=== PATIENT | male | born 1955 | race Caucasian/White ===

== ENCOUNTER → 2016-04-27 | Outpatient (CLI) | payer OTHER ==
[~2016-04-27] MED LIST: BLOOD GLUCOSE T1 TES; FLUT1SPR9; FLUT50SP EACH NARE; GLIP5 OR; GLIP5TAB8 PO; GLUCTES27 XX; IBUP-232 PO; IBUP600T26 PO; LISI-519 PO; NAPR250T PO; ROBA750T3 PO
[2016-04-27 08:44] LABS: AUTOMATED NEUTROPHIL # 5.1 TH/MM3 (1.8-7.7); BASOPHIL # 0.1 TH/MM3 (0-0.2); EOSINOPHIL # 0.7 TH/MM3 (0-0.4); HEMATOCRIT 42.9 % (39.0-51.0); HEMO FLAGS DIFF FINAL; LYMPH % 23.2 % (9.0-44.0); MEAN CELL VOLUME 82.4 FL (80.0-100.0); MONO % 8.2 % (0.0-8.0); NEUT % 59.6 % (16.0-70.0); PLATELET COUNT 314 TH/MM3 (150-450); RED BLOOD COUNT 5.21 MIL/MM3 (4.50-5.90); RED CELL DISTRIBUTION WIDTH 15.4 % (11.6-17.2); WHITE BLOOD COUNT 8.5 TH/MM3 (4.0-11.0)
[2016-04-27 09:21] LABS: ALKALINE PHOSPHATASE 76 U/L (45-117); ALT (GPT) 30 U/L (12-78); ANION GAP 7 MEQ/L (5-15); AST (GOT) 14 U/L (15-37); BICARBONATE 29.7 MEQ/L (21.0-32.0); BLOOD UREA NITROGEN 23 MG/DL (7-18); CHLORIDE 103 MEQ/L (98-107); GLOMERULAR FILTRATION RATE 53 ML/MIN (>89); GLUCOSE,FASTING 157 MG/DL (74-99); HDL CHOLESTEROL 58.9 MG/DL (40.0-60.0); LDL CHOLESTEROL 120 MG/DL (0-99); POTASSIUM 4.2 MEQ/L (3.5-5.1); SODIUM (NA) 140 MEQ/L (136-145); TOTAL BILIRUBIN ADULT 0.3 MG/DL (0.2-1.0)
[2016-04-27 13:06] LABS: HEMOGLOBIN A1a 1.2 %; HEMOGLOBIN A1b 2.1 %; HEMOGLOBIN Ao 80.3 %; HEMOGLOBIN LA1C 2.4 %; HEMOGLOBIN P3 4.8 %
== END ==
LOC: CLAB 08:26
PROVIDERS: ATTEND Nurse Practitioner Family
DX: E11.9 Type 2 diabetes mellitus without complications (principal); I10 Essential (primary) hypertension; N28.9 Disorder of kidney and ureter, unspecified
CPT/HCPCS: 36415; 80053; 80061; 83036; 84443; 85025

== ENCOUNTER → 2016-07-28 | Outpatient (CLI) | payer OTHER ==
[~2016-07-28] MED LIST changes: -FLUT1SPR9; -GLIP5 OR; -GLUCTES27 XX; -IBUP600T26 PO; -ROBA750T3 PO
[2016-07-28 09:36] LABS: AUTOMATED NEUTROPHIL # 5.1 TH/MM3 (1.8-7.7); BASOPHIL # 0.1 TH/MM3 (0-0.2); BASOPHIL % 1.1 % (0.0-2.0); EOSINOPHIL # 0.5 TH/MM3 (0-0.4); EOSINOPHIL % 5.9 % (0.0-4.0); HEMATOCRIT 39.4 % (39.0-51.0); HEMO FLAGS DIFF FINAL; LYMPHOCYTE # 1.5 TH/MM3 (1.0-4.8); MEAN CELL VOLUME 81.9 FL (80.0-100.0); MEAN CORPUSCULAR HEMOGLOBIN 27.4 PG (27.0-34.0); MEAN CORPUSCULAR HGB CONC 33.5 % (32.0-36.0); MONO % 7.7 % (0.0-8.0); NEUT % 65.3 % (16.0-70.0); PLATELET COUNT 318 TH/MM3 (150-450); RED BLOOD COUNT 4.81 MIL/MM3 (4.50-5.90); RED CELL DISTRIBUTION WIDTH 14.4 % (11.6-17.2); WHITE BLOOD COUNT 7.8 TH/MM3 (4.0-11.0)
[2016-07-28 10:08] LABS: ALKALINE PHOSPHATASE 66 U/L (45-117); ALT (GPT) 22 U/L (12-78); ANION GAP 7 MEQ/L (5-15); AST (GOT) 17 U/L (15-37); BLOOD UREA NITROGEN 17 MG/DL (7-18); CHLORIDE 104 MEQ/L (98-107); GLOMERULAR FILTRATION RATE 56 ML/MIN (>89); GLUCOSE,FASTING 103 MG/DL (74-99); HDL CHOLESTEROL 45.4 MG/DL (40.0-60.0); LDL CHOLESTEROL 110 MG/DL (0-99); POTASSIUM 4.2 MEQ/L (3.5-5.1); SODIUM (NA) 140 MEQ/L (136-145); TOTAL BILIRUBIN ADULT 0.3 MG/DL (0.2-1.0)
[2016-07-28 16:37] LABS: HEMOGLOBIN A1a 1.1 %; HEMOGLOBIN Ao 81.6 %; HEMOGLOBIN LA1C 2.1 %; HEMOGLOBIN P3 4.4 %
== END ==
LOC: CLAB 09:14
PROVIDERS: ATTEND Nurse Practitioner Family
DX: E11.9 Type 2 diabetes mellitus without complications (principal); N28.9 Disorder of kidney and ureter, unspecified
CPT/HCPCS: 36415; 80053; 80061; 83036; 85025

== ENCOUNTER → 2016-12-03 | Outpatient (CLI) | payer OTHER ==
[~2016-12-03] MED LIST changes: -IBUP-232 PO; +METR500T10 PO
[2016-12-03 13:46] LABS: URINE TOTAL PROTEIN TIMED 36.5 MG/DL
== END ==
LOC: CLAB 10:11
PROVIDERS: ATTEND Family Medicine
DX: E11.9 Type 2 diabetes mellitus without complications (principal); N28.9 Disorder of kidney and ureter, unspecified
CPT/HCPCS: 84157

== ENCOUNTER 2016-12-29 09:28 | Inpatient (IN) | payer OTHER ==
[~2016-12-29] VITALS: Ht 167.6 cm; Wt 73.6 kg
[~2016-12-29 09:28] MED LIST changes: -METR500T10 PO
[2016-12-29 09:38] VITALS: BP 140/74; PULSE 89; RESP 16; TEMP 98.5; O2SAT 98
[2016-12-29 09:59] VITALS: BP 117/67; PULSE 100; RESP 17; TEMP 98.1; O2SAT 100
[2016-12-29] MEDS ORDERED: SODIUM CHLOR 0.9% 1000 ML INJ 1,000 ML IV ONE ×2 (10:13→11:15)
[2016-12-29] MEDS ORDERED: SODIUM CHLORIDE 0.9% FLUSH 10 ML FLUSH IVF PRN (10:15)
[2016-12-29] MEDS ORDERED: DICYCLOMINE HCL 20 MG/2 ML VIAL IM ONE (10:15)
[2016-12-29 10:45] LABS: AUTOMATED NEUTROPHIL # 13.8 TH/MM3 (1.8-7.7); BASOPHIL % 0.3 % (0.0-2.0); EOSINOPHIL # 0.3 TH/MM3 (0-0.4); EOSINOPHIL % 1.7 % (0.0-4.0); HEMATOCRIT 36.6 % (39.0-51.0); LYMPH % 6.1 % (9.0-44.0); MEAN CORPUSCULAR HEMOGLOBIN 28.3 PG (27.0-34.0); MEAN CORPUSCULAR HGB CONC 34.9 % (32.0-36.0); MONO % 9.6 % (0.0-8.0); NEUT % 82.3 % (16.0-70.0); PLATELET COUNT 397 TH/MM3 (150-450); RED BLOOD COUNT 4.52 MIL/MM3 (4.50-5.90); RED CELL DISTRIBUTION WIDTH 14.4 % (11.6-17.2); WHITE BLOOD COUNT 16.7 TH/MM3 (4.0-11.0)
[2016-12-29 10:50] LABS: HEMO FLAGS AUTO DIFF
--- NOTE | 2016-12-29 10:58 | RADRPT ---
EXAM DATE/TIME: 12/29/2016 10:46 [facility] COMPARISON: No previous studies available for comparison. INDICATIONS : Entire abdomen pain, with diarrhea and nausea. MEDICAL HISTORY : None. SURGICAL HISTORY : None. ENCOUNTER: Initial ACUITY: 2 days PAIN SCORE: 9/10 LOCATION: Abdomen FINDINGS: Supine view of the abdomen was performed. The abdominal bowel gas pattern is normal. No abnormal ma sses, calcifications, or organomegaly is seen. The osseous structures are unremarkable. CONCLUSION: Unremarkable bowel gas pattern. Kei Massey MD on December 29, 2016 at 10:54 Board Certified Radiologist. This report was verified electronically.
[2016-12-29 11:04] LABS: ALT (GPT) 51 U/L (12-78); ANION GAP 9 MEQ/L (5-15); AST (GOT) 41 U/L (15-37); BICARBONATE 23.7 MEQ/L (21.0-32.0); BLOOD UREA NITROGEN 36 MG/DL (7-18); CHLORIDE 94 MEQ/L (98-107); GLOMERULAR FILTRATION RATE 34 ML/MIN (>89); POTASSIUM 4.6 MEQ/L (3.5-5.1); SODIUM (NA) 127 MEQ/L (136-145)
[2016-12-29 11:06] LABS: ALKALINE PHOSPHATASE 75 U/L (45-117); TOTAL BILIRUBIN ADULT 0.3 MG/DL (0.2-1.0)
--- NOTE | 2016-12-29 11:24 | PD ---
HPI Chief Complaint: GI Complaint Time Seen by Provider: 10:13 Travel History International Travel<30 days: No Contact w/Intl Traveler<30days: No Traveled to known affect area: No History of Present Illness HPI Patient is a 61-year-old male presenting to emergency department evaluation of abdominal pain, diarrhea, nausea. Patient states it started 2 weeks ago, he was seen and evaluated in urgent care clinic and prescribed antibiotics over a week ago, he completed the full course but continues to be symptomatic. Patient states she's gone 5 times since midnight today. He reports it being watery and loose but not explosive. He reports nausea but no vomiting. He has had a loss of appetite with decreased oral intake. He has no reported fevers or chills. He denies any history of diverticulitis colitis, irritable bowel syndrome. PFSH Past Medical History Cardiovascular Problems: Yes (htn) Diabetes: Yes Patient Takes Glucophage: No Diminished Hearing: No Tetanus Vaccination: > 5 Years ?: Not Past Surgical History Other Surgery: Yes (NASAL SURG) Social History Alcohol Use: No Tobacco Use: No Substance Use: No Allergies-Medications (Allergen,Severity, Reaction): Coded Allergies: No Known Allergies (Verified , 12/29/16) Reported Meds & Prescriptions Reported Meds & Active Scripts Active Lisinopril 5 Mg Tab 5 Mg PO DAILY Glipizide 5 Mg Tab 5 Mg PO BIDAC Take 30 minutes before a meal Reported Naproxen 250 Mg Tab 250 Mg PO BID Blood Glucose Test Strips 1 Darcy Darcy 1 Ea .ROUTE DIRECTED Fluticasone Nasal [place] 50 Mcg/Act Naspr 50 Mcg EACH NARE BID 50 mcg/spray Review of Systems Except as stated in HPI: all other systems reviewed are Neg General / Constitutional: Positive: Chills Gastrointestinal: Positive: Nausea, Diarrhea, Abdominal Pain, Loss of Appetite , No: Vomiting Genitourinary: No: Dysuria Musculoskeletal: No: Myalgias Neurologic: No: Weakness Physical Exam Narrative GENERAL: Thin, well-developed male. Resting comfortably in no acute distress. SKIN: Warm and dry. HEAD: Atraumatic. Normocephalic. EYES: Pupils equal and round. No scleral icterus. No injection or drainage. ENT: No nasal bleeding or discharge. Mucous membranes pink and moist. NECK: Trachea midline. No JVD. CARDIOVASCULAR: Regular rate and rhythm. RESPIRATORY: No accessory muscle use. Clear to auscultation. Breath sounds equal bilaterally. GASTROINTESTINAL: Abdomen soft, only tender to palpation right lower quadrant, no rebound, no guarding, nondistended. Hepatic and splenic margins not palpable. Positive Bowel sounds. MUSCULOSKELETAL: Extremities without clubbing, cyanosis, or edema. No obvious deformities. NEUROLOGICAL: Awake and alert. No obvious cranial nerve deficits. Motor grossly within normal limits. Five out of 5 muscle strength in the arms and legs. Normal speech. PSYCHIATRIC: Appropriate mood and affect; insight and judgment normal. Data Data Last Documented VS Vital Signs Date Time Temp Pulse Resp B/P (MAP) Pulse Ox O2 Delivery O2 Flow Rate FiO2 12/29/16 09:59 98.1 100 17 117/67 (84) 100 Room Air Orders Orders Complete Blood Count With Diff (12/29/16 10:13) Comprehensive Metabolic Panel (12/29/16 10:13) Iv Access Insert/Monitor (12/29/16 10:13) Sodium Chlor 0.9% 1000 Ml Inj (Ns 1000 M (12/29/16 10:13) Sodium Chloride 0.9% Flush (Ns Flush) (12/29/16 10:15) Abdomen, Kub Only (12/29/16 10:13) Dicyclomine Inj (Bentyl Inj) (12/29/16 10:15) Urinalysis - C+S If Indicated (12/29/16 11:08) Ct Abd/Pel W/O Iv Contrast (12/29/16 ) Sodium Chlor 0.9% 1000 Ml Inj (Ns 1000 M (12/29/16 11:15) Levofloxacin 750 Mg Premix Inj (Levaquin (12/29/16 12:30) Metronidazole 500 Mg Inj (Flagyl 500 Mg (12/29/16 12:30) Labs Laboratory Tests Test 12/29/16 10:30 12/29/16 12:05 White Blood Count 16.7 TH/MM3 Red Blood Count 4.52 MIL/MM3 Hemoglobin 12.8 GM/DL Hematocrit 36.6 % Mean Corpuscular Volume 81.0 FL Mean Corpuscular Hemoglobin 28.3 PG Mean Corpuscular Hemoglobin Concent 34.9 % Red Cell Distribution Width 14.4 % Platelet Count 397 TH/MM3 Mean Platelet Volume 7.1 FL Neutrophils (%) (Auto) 82.3 % Lymphocytes (%) (Auto) 6.1 % Monocytes (%) (Auto) 9.6 % Eosinophils (%) (Auto) 1.7 % Basophils (%) (Auto) 0.3 % Neutrophils # (Auto) 13.8 TH/MM3 Lymphocytes # (Auto) 1.0 TH/MM3 Monocytes # (Auto) 1.6 TH/MM3 Eosinophils # (Auto) 0.3 TH/MM3 Basophils # (Auto) 0.0 TH/MM3 CBC Comment AUTO DIFF Differential Comment AUTO DIFF CONFIRMED Platelet Estimate NORMAL Platelet Morphology Comment NORMAL Ovalocytes 1+ Blood Urea Nitrogen 36 MG/DL Creatinine 2.02 MG/DL Random Glucose 209 MG/DL Total Protein 6.7 GM/DL Albumin 2.9 GM/DL Calcium Level 8.7 MG/DL Alkaline Phosphatase 75 U/L Aspartate Amino Transf (AST/SGOT) 41 U/L Alanine Aminotransferase (ALT/SGPT) 51 U/L Total Bilirubin 0.3 MG/DL Sodium Level 127 MEQ/L Potassium Level 4.6 MEQ/L Chloride Level 94 MEQ/L Carbon Dioxide Level 23.7 MEQ/L Anion Gap 9 MEQ/L Estimat Glomerular Filtration Rate 34 ML/MIN MDM Medical Decision Making Medical Screen Exam Complete: Yes Emergency Medical Condition: Yes Interpretation(s) Last Impressions Abdomen X-Ray 12/29/16 1013 Signed Impressions: Service Date/Time: Thursday, December 29, 2016 10:46 - CONCLUSION: Unremarkable bowel gas pattern. Kei Massey MD Abdomen/Pelvis CT 12/29/16 0000 Signed Impressions: Service Date/Time: Thursday, December 29, 2016 11:40 - CONCLUSION: 1. Colonic wall thickening and surrounding inflammatory change most characteristic of colitis. 2. Small amount of ascites in the upper abdomen. Kei Massey MD Laboratory Tests Test 12/29/16 10:30 12/29/16 12:05 White Blood Count 16.7 TH/MM3 Red Blood Count 4.52 MIL/MM3 Hemoglobin 12.8 GM/DL Hematocrit 36.6 % Mean Corpuscular Volume 81.0 FL Mean Corpuscular Hemoglobin 28.3 PG Mean Corpuscular Hemoglobin Concent 34.9 % Red Cell Distribution Width 14.4 % Platelet Count 397 TH/MM3 Mean Platelet Volume 7.1 FL Neutrophils (%) (Auto) 82.3 % Lymphocytes (%) (Auto) 6.1 % Monocytes (%) (Auto) 9.6 % Eosinophils (%) (Auto) 1.7 % Basophils (%) (Auto) 0.3 % Neutrophils # (Auto) 13.8 TH/MM3 Lymphocytes # (Auto) 1.0 TH/MM3 Monocytes # (Auto) 1.6 TH/MM3 Eosinophils # (Auto) 0.3 TH/MM3 Basophils # (Auto) 0.0 TH/MM3 CBC Comment AUTO DIFF Differential Comment AUTO DIFF CONFIRMED Platelet Estimate NORMAL Platelet Morphology Comment NORMAL Ovalocytes 1+ Blood Urea Nitrogen 36 MG/DL Creatinine 2.02 MG/DL Random Glucose 209 MG/DL Total Protein 6.7 GM/DL Albumin 2.9 GM/DL Calcium Level 8.7 MG/DL Alkaline Phosphatase 75 U/L Aspartate Amino Transf (AST/SGOT) 41 U/L Alanine Aminotransferase (ALT/SGPT) 51 U/L Total Bilirubin 0.3 MG/DL Sodium Level 127 MEQ/L Potassium Level 4.6 MEQ/L Chloride Level 94 MEQ/L Carbon Dioxide Level 23.7 MEQ/L Anion Gap 9 MEQ/L Estimat Glomerular Filtration Rate 34 ML/MIN Vital Signs Date Time Temp Pulse Resp B/P (MAP) Pulse Ox O2 Delivery O2 Flow Rate FiO2 12/29/16 09:59 98.1 100 17 117/67 (84) 100 Room Air 12/29/16 09:38 98.5 89 16 140/74 (96) 98 Differential Diagnosis Irritable bowel syndrome versus colitis versus diverticulitis versus obstruction versus appendicitis versus other Narrative Course Patient is 61-year-old male presented with 2 weeks of diarrhea, loss of appetite , nausea. Patient's vital signs are stable. IV access established, patient was sent home to monitor and continuous pulse oximetry. Labs and imaging ordered and pending. KUB is negative CBC with elevated white count with left shift Chemistry with elevated BUN and creatinine CT abdomen and pelvis read by the radiologist shows colonic wall thickening and surrounding inflammatory change most characteristic of colitis. There is a small amount of ascites in the upper abdomen. Patient was given 2 L of IV fluids, metronidazole and Levaquin IV ordered. Patient will be admitted to Dr. Schumacher. Admit orders placed. Patient were informed of findings and plan. Diagnosis Primary Impression: Colitis Additional Impression: Acute kidney injury Admitting Information Admitting Physician Requests: Admit Condition: Stable Haydee Charles Dec 29, 2016 11:24
[2016-12-29 11:25] LABS: OVALOCYTES 1+ (NORMAL); PLATELET ESTIMATE SMEAR NORMAL (NORMAL); PLATELET MORPHOLOGY NORMAL (NORMAL); SCAN/DIFF AUTO DIFF CONFIRMED
--- NOTE | 2016-12-29 12:14 | RADRPT ---
EXAM DATE/TIME: 12/29/2016 11:40 [facility] COMPARISON: No previous studies available for comparison. INDICATIONS : Diarrhea and cramping for 2 weeks ORAL CONTRAST: No oral contrast ingested. RADIATION DOSE: 9.96 CTDIvol (mGy) MEDICAL HISTORY : Diabetes mellitus type 1. SURGICAL HISTORY : None. ENCOUNTER: Initial ACUITY: 2 weeks PAIN SCALE: 4/10 LOCATION: lower quadrant TECHNIQUE: Volumetric scanning of the abdomen and pelvis was performed. Using automated exposure control and ad justment of the mA and/or kV according to patient size, radiation dose was kept as low as reasonably achievable to obtain optimal diagnostic quality images. DICOM format image data is available electro nically for review and comparison. FINDINGS: LOWER LUNGS: The visualized lower lungs are clear. LIVER: Homogeneous density without lesion. There is no dilation of the biliary tree. No calcified gallston es. There is a small amount of fluid surrounding the lateral liver margin. SPLEEN: Normal size without lesion. There is a small amount of fluid surrounding the lateral splenic margin. PANCREAS: Within normal limits. KIDNEYS: Normal in size and shape. There is no mass, stone, or hydronephrosis. ADRENAL GLANDS: Within normal limits. VASCULAR: There is no aortic aneurysm. BOWEL/MESENTERY: No oral contrast was given limiting the sensitivity. There is circumferential bowel wall thickening g reatest involving the ascending colon and proximal transverse colon with surrounding inflammatory michele nge. There is no free air. The small bowel is decompressed. Mild ascites is noted in the upper abdome n. ABDOMINAL WALL: Within normal limits. RETROPERITONEUM: There is no lymphadenopathy. BLADDER: No wall thickening or mass. REPRODUCTIVE: Within normal limits. INGUINAL: There is no lymphadenopathy or hernia. MUSCULOSKELETAL: Within normal limits for patient age. CONCLUSION: 1. Colonic wall thickening and surrounding inflammatory change most characteristic of colitis. 2. Small amount of ascites in the upper abdomen. Kei Massey MD on December 29, 2016 at 12:05 Board Certified Radiologist. This report was verified electronically.
[2016-12-29] MEDS ORDERED: LEVOFLOXACIN 750 MG PREMIX INJ 150 ML IV ONE (12:30)
[2016-12-29] MEDS ORDERED: metroNIDAZOLE 500 MG INJ 100 ML IV ONE (12:30)
[2016-12-29] MEDS: SODIUM CHLOR 0.9% 1000 ML INJ 1,000 ML IV SCH (12:54)
[2016-12-29 12:58] LABS: BLOOD, URINE NEG (NEG); COMMENT (UR) CULT NOT INDICATED; CULTURE IF INDICATED CULT NOT INDICATED; GLUCOSE,URINE NEG (NEG); KETONE, URINE NEG (NEG); MUCUS URINE FEW /lpf (OCC); NITRITE,URINE NEG (NEG); SQUAMOUS EPITHELIAL CELL URINE <1 /hpf (0-5); URINE COLOR YELLOW (YELLW/STRAW)
[2016-12-29] MEDS ORDERED: SODIUM CHLORIDE 0.9% FLUSH 10 ML FLUSH IV FLUSH PRN (13:00)
[2016-12-29] MEDS ORDERED: MORPHINE SULFATE 4 MG/ML INJ IV PRN (13:00)
[2016-12-29] MEDS ORDERED: ACETAMINOPHEN 325 MG TAB PO PRN ×2 (13:00)
[2016-12-29] MEDS ORDERED: NALOXONE HCL 0.4 MG/ML AMP IV PRN (13:00)
[2016-12-29 14:06] VITALS: PULSE 81; RESP 20; O2SAT 99
[2016-12-29 14:20] VITALS: BP 111/67; TEMP 98.6
[2016-12-29 15:03] VITALS: BP 117/64; PULSE 80; RESP 17; TEMP 98; O2SAT 99
--- NOTE | 2016-12-29 15:42 | HHI.HP ---
[facility] Service [facility] Primary Care Physician Nadine Casas MD Admission Diagnosis COLITIS, ARF Diagnoses: Chief Complaint: Diarrhea Travel History International Travel<30 Days: No Contact w/Intl Traveler <30 Da: No Traveled to Known Affected Are: No History of Present Illness The patient is a 61-year-old male with past medical history of hypertension and diabetes who is presenting to the hospital with diarrhea. The patient says that his symptoms started about 2 weeks ago. He said he initially developed diarrhea that would come and go. He says the consistency was loose at times and chunky others. He said that whenever he ate something it would cause the diarrhea to be worse. He said even if he had toast and would go right through him. He said during the first few days he had a fever up to 100.4. He did have accompanying nausea but has not been vomiting. He does endorse abdominal pain with the diarrhea. He abdominal pain is located around the belly button. It is worse with movement. He says it is like a more severe version of heartburn and he rates it a 5 out of 10 in severity. The patient has been drinking plenty of fluids but has not been eating much lately. He went to a clinic and got a course of antibiotics for his diarrhea which has not helped. He is unable to remember what antibiotic that was. He says he has been averaging around 5 bowel movements daily. The patient also mentioned that he works at [employer] and over the past few months four other people have come down with colitis. He is wondering if those cases are connected. Review of Systems Except as stated in HPI: all other systems reviewed are Neg Past Family Social History Past Medical History Type 2 diabetes Hypertension Chronic renal failure As urethritis of the right foot Past Surgical History Nasal polyps removed Allergies: Coded Allergies: No Known Allergies (Verified , 12/29/16) Active Ordered Medications Current Medications Medications (Trade) Dose Ordered Sig/Vaughn Route Start Time Stop Time Status Last Admin (NS Flush) 2 ml UNSCH PRN IVF 12/29/16 10:15 (Flonase Rk Spr) 1 spray BID EACH NARE 12/29/16 21:00 (NovoLOG SUPPLEMENTAL SCALE) 1 ACHS SLIDING SCALE SQ 12/29/16 16:00 Metronidazole 100 ml @ 100 mls/hr Q8H IV 12/29/16 20:00 Levofloxacin/ Dextrose 150 ml @ 100 mls/hr Q48H IV 12/31/16 12:00 Sodium Chloride 1,000 ml @ 100 mls/hr Q10H IV 12/29/16 12:54 12/29/16 12:54 (NS Flush) 2 ml UNSCH PRN IV FLUSH 12/29/16 13:00 (NS Flush) 2 ml BID IV FLUSH 12/29/16 21:00 (Tylenol) 650 mg Q4H PRN PO 12/29/16 13:00 (Tylenol) 650 mg Q6H PRN PO 12/29/16 13:00 (Roxicodone) 10 mg Q4H PRN PO 12/29/16 13:00 (Morphine Inj) 4 mg Q3H PRN IV 12/29/16 13:00 (Roxicodone) 5 mg Q4H PRN PO 12/29/16 13:00 (Narcan Inj) 0.4 mg UNSCH PRN IV 12/29/16 13:00 (Ashia-Colace) 1 tab BID PO 12/29/16 21:00 Family History Uterine tumors CVA CAD Social History The patient does not smoke, drink or use illicit substances. He lives with his sister. 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 Physical Exam Vital Signs Vital Signs Date Time Temp Pulse Resp B/P (MAP) Pulse Ox O2 Delivery O2 Flow Rate FiO2 12/29/16 15:03 98.0 80 17 117/64 (81) 99 12/29/16 14:20 98.6 78 16 111/67 (82) 99 12/29/16 14:06 81 20 99 12/29/16 09:59 98.1 100 17 117/67 (84) 100 Room Air 12/29/16 09:38 98.5 89 16 140/74 (96) 98 Physical Exam GENERAL: This is a well-nourished, well-developed patient, in no apparent distress. SKIN: No rashes, ecchymoses or lesions. Cool and dry. HEAD: Atraumatic. Normocephalic. No temporal or scalp tenderness. EYES: Pupils equal round and reactive. Extraocular motions intact. No scleral icterus. No injection or drainage. ENT: Nose without bleeding, purulent drainage or septal hematoma. Throat without erythema, tonsillar hypertrophy or exudate. Uvula midline. Airway patent. NECK: Trachea midline. No JVD or lymphadenopathy. Supple, nontender, no meningeal signs. CARDIOVASCULAR: Regular rate and rhythm without murmurs, gallops, or rubs. RESPIRATORY: Clear to auscultation. Breath sounds equal bilaterally. No wheezes , rales, or rhonchi. GASTROINTESTINAL: Abdomen soft, nondistended. Slightly tender in the right lower quadrant. No hepato-splenomegaly, or palpable masses. No guarding. + BS. MUSCULOSKELETAL: Extremities without clubbing, cyanosis, or edema. No joint tenderness, effusion, or edema noted. NEUROLOGICAL: Awake and alert. Cranial nerves II through XII intact. Motor and sensory grossly within normal limits. Five out of 5 muscle strength in all muscle groups. Normal speech. PSYCH: Mood and affect appropriate. Laboratory Laboratory Tests Test 12/29/16 10:30 12/29/16 12:05 White Blood Count 16.7 Red Blood Count 4.52 Hemoglobin 12.8 Hematocrit 36.6 Mean Corpuscular Volume 81.0 Mean Corpuscular Hemoglobin 28.3 Mean Corpuscular Hemoglobin Concent 34.9 Red Cell Distribution Width 14.4 Platelet Count 397 Mean Platelet Volume 7.1 Neutrophils (%) (Auto) 82.3 Lymphocytes (%) (Auto) 6.1 Monocytes (%) (Auto) 9.6 Eosinophils (%) (Auto) 1.7 Basophils (%) (Auto) 0.3 Neutrophils # (Auto) 13.8 Lymphocytes # (Auto) 1.0 Monocytes # (Auto) 1.6 Eosinophils # (Auto) 0.3 Basophils # (Auto) 0.0 CBC Comment AUTO DIFF Differential Comment AUTO DIFF CONFIRMED Platelet Estimate NORMAL Platelet Morphology Comment NORMAL Ovalocytes 1+ Blood Urea Nitrogen 36 Creatinine 2.02 Random Glucose 209 Total Protein 6.7 Albumin 2.9 Calcium Level 8.7 Alkaline Phosphatase 75 Aspartate Amino Transf (AST/SGOT) 41 Alanine Aminotransferase (ALT/SGPT) 51 Total Bilirubin 0.3 Sodium Level 127 Potassium Level 4.6 Chloride Level 94 Carbon Dioxide Level 23.7 Anion Gap 9 Estimat Glomerular Filtration Rate 34 Urine Color YELLOW Urine Turbidity CLEAR Urine pH 5.0 Urine Specific [place] 1.006 Urine Protein NEG Urine Glucose (UA) NEG Urine Ketones NEG Urine Occult Blood NEG Urine Nitrite NEG Urine Bilirubin NEG Urine Urobilinogen LESS THAN 2.0 Urine Leukocyte Esterase NEG Urine WBC 1 Urine Squamous Epithelial Cells <1 Urine Mucus FEW Microscopic Urinalysis Comment CULT NOT INDICATED Result Diagram: 12/29/16 1030 12/29/16 1030 Imaging Last Impressions Abdomen X-Ray 12/29/16 1013 Signed Impressions: Service Date/Time: Thursday, December 29, 2016 10:46 - CONCLUSION: Unremarkable bowel gas pattern. Kei Massey MD Abdomen/Pelvis CT 12/29/16 0000 Signed Impressions: Service Date/Time: Thursday, December 29, 2016 11:40 - CONCLUSION: 1. Colonic wall thickening and surrounding inflammatory change most characteristic of colitis. 2. Small amount of ascites in the upper abdomen. Kei Massey MD [place] VTE Risk Assessment Caprini VTE Risk Assessment: Mod/High Risk (score >= 2) Caprini Risk Assessment Model Point Value = 1 Point Value = 2 Point Value = 3 Point Value = 5 Age 41-60 Minor surgery BMI > 25 kg/m2 Swollen legs Varicose veins or History of unexplained or recurrent spontaneous Oral contraceptives or hormone replacement Sepsis (< 1 month) Serious lung disease, including pneumonia (< 1 month) Abnormal pulmonary function Acute myocardial infarction Congestive heart failure (< 1 month) History of inflammatory bowel disease Medical patient at bed rest Age 61-74 Arthroscopic surgery Major open surgery (> 45 min) Laparoscopic surgery (> 45 min) Malignancy Confined to bed (> 72 hours) Immobilizing plaster cast Central venous access Age >= 75 History of VTE Family history of VTE Factor V Leiden Prothrombin [id number] Lupus anticoagulant Anticardiolipin antibodies Elevated serum homocysteine Heparin-induced thrombocytopenia Other congenital or acquired thrombophilia Stroke (< 1 month) Elective arthroplasty Hip, pelvis, or leg fracture Acute spinal cord injury (< 1 month) Prophylaxis Regimen Total Risk Factor Score Risk Level Prophylaxis Regimen 0-1 Low Early ambulation 2 Moderate Order ONE of the following: *Sequential Compression Device (SCD) *Heparin 5000 units SQ BID 3-4 Higher Order ONE of the following medications: *Heparin 5000 units SQ TID *Enoxaparin/Lovenox 40 mg SQ daily (WT < 150 kg, CrCl > 30 mL/min) *Enoxaparin/Lovenox 30 mg SQ daily (WT < 150 kg, CrCl > 10-29 mL/min) *Enoxaparin/Lovenox 30 mg SQ BID (WT < 150 kg, CrCl > 30 mL/min) AND/OR *Sequential Compression Device (SCD) 5 or more Highest Order ONE of the following medications: *Heparin 5000 units SQ TID (Preferred with Epidurals) *Enoxaparin/Lovenox 40 mg SQ daily (WT < 150 kg, CrCl > 30 mL/min) *Enoxaparin/Lovenox 30 mg SQ daily (WT < 150 kg, CrCl > 10-29 mL/min) *Enoxaparin/Lovenox 30 mg SQ BID (WT < 150 kg, CrCl > 30 mL/min) AND *Sequential Compression Device (SCD) Assessment and Plan Assessment and Plan Acute colitis Ongoing for two weeks. Completed a course of antibiotics as an outpt. He has leukocytosis. CT scan showed: Colonic wall thickening and surrounding inflammatory change most characteristic of colitis. - continue IV Levaquin and IV Flagyl. - check C diff PCR and stool studies. - IVFs. - pain control and antiemetics as needed. Acute on chronic renal failure Baseline creatinine around 1.3. Likely s/t dehydration from diarrhea. - IVFs. - avoid nephrotoxic agents. - treat colitis as above. - hold lisinopril and naproxen. Hyponatremia Likely hypovolemic from diarrhea. - IVFs. - treatment as above. DM2 On glipizide as an outpt. - hold glipizide. - insulin sliding scale. PPx: SCDs Code Status Full Discussed Condition With Pt, nurse Physician Certification 2 Midnight Certification Type: Admission for Inpatient Services Order for Inpatient Services The services are ordered in accordance with Medicare regulations or non- Medicare payer requirements, as applicable. In the case of services not specified as inpatient-only, they are appropriately provided as inpatient services in accordance with the 2-midnight benchmark. Estimated LOS (days): 2 days is the estimated time the patient will need to remain in the hospital, assuming treatment plan goals are met and no additional complications. Post-Hospital Plan: Home Kei Schumacher DO Dec 29, 2016 15:42
[2016-12-29] MEDS: INSULIN ASPART SUPPLEMENTAL SCALE SQ SCH ×2 (16:00→22:36)
[2016-12-29 20:00] VITALS: BP 124/58; PULSE 96; RESP 22; TEMP 98; O2SAT 94
[2016-12-29] MEDS: SODIUM CHLORIDE 0.9% FLUSH 10 ML FLUSH IV FLUSH SCH (21:00)
[2016-12-29] MEDS: DOCUSATE SODIUM 50 MG/SENNA 8.6 MG TAB PO SCH (21:00)
[2016-12-29 21:47] LABS: C. DIFF EPI 027 PRESUMPTIVE NEGATIVE (NEGATIVE)
[2016-12-29] MEDS: metroNIDAZOLE 500 MG INJ 100 ML IV SCH (22:39)
[2016-12-30] VITALS: BP 111/63; PULSE 82; RESP 22; TEMP 96.9; O2SAT 95
[2016-12-30] MEDS: FLUTICASONE PROPIONATE 50 MCG/ACT 16 GM NASAL SPRAY EACH NARE SCH ×3 (00:11→22:20)
[2016-12-30] MEDS: metroNIDAZOLE 500 MG INJ 100 ML IV SCH ×3 (03:03→22:20)
[2016-12-30 04:00] VITALS: BP 116/67; PULSE 79; RESP 22; TEMP 96.1; O2SAT 97
[2016-12-30] MEDS: SODIUM CHLOR 0.9% 1000 ML INJ 1,000 ML IV SCH ×4 (05:02→22:26)
[2016-12-30 06:58] LABS: BASOPHIL # 0.1 TH/MM3 (0-0.2); BASOPHIL % 0.5 % (0.0-2.0); EOSINOPHIL # 0.3 TH/MM3 (0-0.4); EOSINOPHIL % 2.1 % (0.0-4.0); HEMATOCRIT 34.9 % (39.0-51.0); LYMPH % 5.1 % (9.0-44.0); LYMPHOCYTE # 0.8 TH/MM3 (1.0-4.8); MEAN CELL VOLUME 81.9 FL (80.0-100.0); MEAN CORPUSCULAR HEMOGLOBIN 26.4 PG (27.0-34.0); MEAN CORPUSCULAR HGB CONC 32.2 % (32.0-36.0); MONO % 8.4 % (0.0-8.0); NEUT % 83.9 % (16.0-70.0); PLATELET COUNT 369 TH/MM3 (150-450); RED BLOOD COUNT 4.26 MIL/MM3 (4.50-5.90); RED CELL DISTRIBUTION WIDTH 14.4 % (11.6-17.2); WHITE BLOOD COUNT 15.5 TH/MM3 (4.0-11.0)
[2016-12-30 07:03] LABS: HEMO FLAGS AUTO DIFF
[2016-12-30 07:23] LABS: ALKALINE PHOSPHATASE 67 U/L (45-117); ALT (GPT) 52 U/L (12-78); ANION GAP 9 MEQ/L (5-15); AST (GOT) 44 U/L (15-37); BICARBONATE 21.4 MEQ/L (21.0-32.0); BLOOD UREA NITROGEN 28 MG/DL (7-18); CHLORIDE 104 MEQ/L (98-107); GLOMERULAR FILTRATION RATE 53 ML/MIN (>89); SODIUM (NA) 134 MEQ/L (136-145); TOTAL BILIRUBIN ADULT 0.3 MG/DL (0.2-1.0)
[2016-12-30 07:50] LABS: SCAN/DIFF AUTO DIFF CONFIRMED
[2016-12-30 08:00] VITALS: BP 120/59; PULSE 90; RESP 18; TEMP 96.2; O2SAT 100
[2016-12-30] MEDS: INSULIN ASPART SUPPLEMENTAL SCALE SQ SCH ×4 (08:00→22:30)
[2016-12-30] MEDS: SODIUM CHLORIDE 0.9% FLUSH 10 ML FLUSH IV FLUSH SCH ×2 (08:36→22:25)
[2016-12-30] MEDS: DOCUSATE SODIUM 50 MG/SENNA 8.6 MG TAB PO SCH ×2 (08:37→21:00)
[2016-12-30 12:00] VITALS: BP 117/62; PULSE 88; RESP 18; TEMP 97.4; O2SAT 99
--- NOTE | 2016-12-30 15:49 | HHI.PR ---
Subjective Remarks The patient said that his symptoms were improved. He said he has some mild abdominal cramps every once in a while. No acute complaints. Discussed with nursing. Objective Vitals Vital Signs Date Time Temp Pulse Resp B/P (MAP) Pulse Ox O2 Delivery O2 Flow Rate FiO2 12/30/16 12:00 97.4 88 18 117/62 (80) 99 12/30/16 08:00 96.2 90 18 120/59 (79) 100 12/30/16 04:00 96.1 79 22 116/67 (83) 97 12/30/16 00:00 96.9 82 22 111/63 (79) 95 12/29/16 20:00 98.0 96 22 124/58 (80) 94 I/O 12/29/16 12/29/16 12/29/16 12/30/16 12/30/16 12/30/16 07:00 15:00 23:00 07:00 15:00 23:00 Intake Total 710 ml 240 ml Output Total 300 ml 650 ml Balance 410 ml -410 ml Intake Oral 240 ml 240 ml IV Total 470 ml Output Urine Total 300 ml 650 ml # Bowel Movements 0 3 Result Diagram: 12/30/16 0623 12/30/16 0630 Imaging Last Impressions Abdomen X-Ray 12/29/16 1013 Signed Impressions: Service Date/Time: Thursday, December 29, 2016 10:46 - CONCLUSION: Unremarkable bowel gas pattern. Kei Massey MD Abdomen/Pelvis CT 12/29/16 0000 Signed Impressions: Service Date/Time: Thursday, December 29, 2016 11:40 - CONCLUSION: 1. Colonic wall thickening and surrounding inflammatory change most characteristic of colitis. 2. Small amount of ascites in the upper abdomen. Kei Massey MD Objective Remarks GENERAL: This is a well-nourished, well-developed patient, in no apparent distress. SKIN: No rashes, ecchymoses or lesions. Cool and dry. HEAD: Atraumatic. Normocephalic. No temporal or scalp tenderness. EYES: Pupils equal round and reactive. Extraocular motions intact. No scleral icterus. No injection or drainage. ENT: Nose without bleeding, purulent drainage or septal hematoma. Throat without erythema, tonsillar hypertrophy or exudate. Uvula midline. Airway patent. NECK: Trachea midline. No JVD or lymphadenopathy. Supple, nontender, no meningeal signs. CARDIOVASCULAR: Regular rate and rhythm without murmurs, gallops, or rubs. RESPIRATORY: Clear to auscultation. Breath sounds equal bilaterally. No wheezes , rales, or rhonchi. GASTROINTESTINAL: Abdomen soft, nondistended. Nontender to palpation. No hepato -splenomegaly, or palpable masses. No guarding. + BS. MUSCULOSKELETAL: Extremities without clubbing, cyanosis, or edema. No joint tenderness, effusion, or edema noted. NEUROLOGICAL: Awake and alert. Cranial nerves II through XII intact. Motor and sensory grossly within normal limits. Five out of 5 muscle strength in all muscle groups. Normal speech. PSYCH: Mood and affect appropriate. Medications and IVs Current Medications Medications (Trade) Dose Ordered Sig/Vaughn Route Start Time Stop Time Status Last Admin (NS Flush) 2 ml UNSCH PRN IVF 12/29/16 10:15 (Flonase Rk Spr) 1 spray BID EACH NARE 12/29/16 21:00 12/30/16 08:38 (NovoLOG SUPPLEMENTAL SCALE) 1 ACHS SLIDING SCALE SQ 12/29/16 16:00 12/29/16 22:36 Metronidazole 100 ml @ 100 mls/hr Q8H IV 12/29/16 20:00 12/30/16 12:11 Sodium Chloride 1,000 ml @ 100 mls/hr Q10H IV 12/29/16 12:54 12/30/16 05:02 (NS Flush) 2 ml UNSCH PRN IV FLUSH 12/29/16 13:00 (NS Flush) 2 ml BID IV FLUSH 12/29/16 21:00 (Tylenol) 650 mg Q4H PRN PO 12/29/16 13:00 (Tylenol) 650 mg Q6H PRN PO 12/29/16 13:00 (Roxicodone) 10 mg Q4H PRN PO 12/29/16 13:00 (Morphine Inj) 4 mg Q3H PRN IV 12/29/16 13:00 (Roxicodone) 5 mg Q4H PRN PO 12/29/16 13:00 (Narcan Inj) 0.4 mg UNSCH PRN IV 12/29/16 13:00 (Ashia-Colace) 1 tab BID PO 12/29/16 21:00 A/P Assessment and Plan Acute colitis/ C diff Ongoing for two weeks. Completed a course of antibiotics as an outpt. He has leukocytosis. CT scan showed: Colonic wall thickening and surrounding inflammatory change most characteristic of colitis. C. difficile PCR was positive. - continue IV Flagyl. DC Levaquin. - IVFs. - pain control and antiemetics as needed. Acute on chronic renal failure Baseline creatinine around 1.3. Likely s/t dehydration from diarrhea. Improved with fluids. - Continue IVFs. - avoid nephrotoxic agents. - treat colitis as above. - hold lisinopril and naproxen. Hyponatremia Likely hypovolemic from diarrhea. - IVFs. - treatment as above. Resolving. DM2 On glipizide as an outpt. - hold glipizide. - insulin sliding scale. PPx: SCDs Discharge Planning Anticipate discharge home in 1-2 days if symptoms are improved enough Kei Schumacher DO Dec 30, 2016 15:49
[2016-12-30 16:00] VITALS: BP 118/65; PULSE 81; RESP 18; TEMP 97.5; O2SAT 99
[2016-12-30 20:00] VITALS: BP 134/67; PULSE 83; RESP 24; TEMP 96.2; O2SAT 99
[2016-12-31] VITALS: BP 126/68; PULSE 83; RESP 22; TEMP 96.3; O2SAT 98
[2016-12-31] MEDS: metroNIDAZOLE 500 MG INJ 100 ML IV SCH (03:10)
[2016-12-31 08:00] VITALS: BP 145/68; PULSE 74; RESP 20; TEMP 97.9; O2SAT 99
[2016-12-31] MEDS: INSULIN ASPART SUPPLEMENTAL SCALE SQ SCH (08:00)
[2016-12-31 08:14] LABS: HEMATOCRIT 37.4 % (39.0-51.0); MEAN CELL VOLUME 82.3 FL (80.0-100.0); MEAN CORPUSCULAR HEMOGLOBIN 26.8 PG (27.0-34.0); MEAN CORPUSCULAR HGB CONC 32.6 % (32.0-36.0); PLATELET COUNT 400 TH/MM3 (150-450); RED BLOOD COUNT 4.54 MIL/MM3 (4.50-5.90); RED CELL DISTRIBUTION WIDTH 14.7 % (11.6-17.2); REVIEW FLAG FINAL; WHITE BLOOD COUNT 14.5 TH/MM3 (4.0-11.0)
[2016-12-31 08:37] LABS: BICARBONATE 21.4 MEQ/L (21.0-32.0); POTASSIUM 4.1 MEQ/L (3.5-5.1)
[2016-12-31] MEDS: DOCUSATE SODIUM 50 MG/SENNA 8.6 MG TAB PO SCH (09:00)
[2016-12-31] MEDS: SODIUM CHLORIDE 0.9% FLUSH 10 ML FLUSH IV FLUSH SCH (09:00)
[2016-12-31] MEDS: FLUTICASONE PROPIONATE 50 MCG/ACT 16 GM NASAL SPRAY EACH NARE SCH (09:43)
[2016-12-31] MEDS ORDERED: METR500T10 PO (11:27)
--- NOTE | 2016-12-31 11:30 | HHI.DCPOC ---
Discharge Care Plan Diagnosis: (1) Colitis (2) Acute kidney injury (3) C. difficile colitis Goals to Promote Your Health * To prevent worsening of your condition and complications * To maintain your health at the optimal level Directions to Meet Your Goals Take your medications as prescribed Follow your dietary instruction Follow activity as directed Keep your appointments as scheduled Take your immunizations and boosters as scheduled If your symptoms worsen call your PCP, if no PCP go to Urgent Care Center or Emergency Room Smoking is Dangerous to Your Health. Avoid second hand smoke Call the 24-hour hour crisis hotline for domestic abuse at Kei Schumacher DO Dec 31, 2016 11:30
--- NOTE | 2016-12-31 11:38 | HHI.PR ---
Subjective Remarks The pt said that he was feeling much better and believes he can handle the diarrhea at home. He would like to go back to work by Wednesday. He has been eating and drinking. Discussed with nursing. Objective Vitals Vital Signs Date Time Temp Pulse Resp B/P (MAP) Pulse Ox O2 Delivery O2 Flow Rate FiO2 12/31/16 08:00 97.9 74 20 145/68 (93) 99 12/31/16 00:00 96.3 83 22 126/68 (87) 98 12/30/16 20:00 96.2 83 24 134/67 (89) 99 12/30/16 16:00 97.5 81 18 118/65 (82) 99 12/30/16 12:00 97.4 88 18 117/62 (80) 99 I/O 12/30/16 12/30/16 12/30/16 12/31/16 12/31/16 12/31/16 07:00 15:00 23:00 07:00 15:00 23:00 Intake Total 240 ml 480 ml 360 ml 120 ml Output Total 650 ml Balance -410 ml 480 ml 360 ml 120 ml Intake Oral 240 ml 480 ml 360 ml 120 ml Output Urine Total 650 ml # Voids 4 5 # Bowel Movements 3 4 5 Result Diagram: 12/31/16 0538 12/31/16 0538 Imaging Last Impressions Abdomen X-Ray 12/29/16 1013 Signed Impressions: Service Date/Time: Thursday, December 29, 2016 10:46 - CONCLUSION: Unremarkable bowel gas pattern. Kei Massey MD Abdomen/Pelvis CT 12/29/16 0000 Signed Impressions: Service Date/Time: Thursday, December 29, 2016 11:40 - CONCLUSION: 1. Colonic wall thickening and surrounding inflammatory change most characteristic of colitis. 2. Small amount of ascites in the upper abdomen. Kei Massey MD Objective Remarks GENERAL: This is a well-nourished, well-developed patient, in no apparent distress. SKIN: No rashes, ecchymoses or lesions. Cool and dry. HEAD: Atraumatic. Normocephalic. No temporal or scalp tenderness. EYES: Pupils equal round and reactive. Extraocular motions intact. No scleral icterus. No injection or drainage. ENT: Nose without bleeding, purulent drainage or septal hematoma. Throat without erythema, tonsillar hypertrophy or exudate. Uvula midline. Airway patent. NECK: Trachea midline. No JVD or lymphadenopathy. Supple, nontender, no meningeal signs. CARDIOVASCULAR: Regular rate and rhythm without murmurs, gallops, or rubs. RESPIRATORY: Clear to auscultation. Breath sounds equal bilaterally. No wheezes , rales, or rhonchi. GASTROINTESTINAL: Abdomen soft, nondistended. Nontender to palpation. No hepato -splenomegaly, or palpable masses. No guarding. + BS. MUSCULOSKELETAL: Extremities without clubbing, cyanosis, or edema. No joint tenderness, effusion, or edema noted. NEUROLOGICAL: Awake and alert. Cranial nerves II through XII intact. Motor and sensory grossly within normal limits. Five out of 5 muscle strength in all muscle groups. Normal speech. PSYCH: Mood and affect appropriate. Medications and IVs Current Medications Medications (Trade) Dose Ordered Sig/Vaughn Route Start Time Stop Time Status Last Admin (NS Flush) 2 ml UNSCH PRN IVF 12/29/16 10:15 (Flonase Rk Spr) 1 spray BID EACH NARE 12/29/16 21:00 12/31/16 09:43 (NovoLOG SUPPLEMENTAL SCALE) 1 ACHS SLIDING SCALE SQ 12/29/16 16:00 12/30/16 22:30 Metronidazole 100 ml @ 100 mls/hr Q8H IV 12/29/16 20:00 12/31/16 03:10 Sodium Chloride 1,000 ml @ 100 mls/hr Q10H IV 12/29/16 12:54 12/30/16 22:26 (NS Flush) 2 ml UNSCH PRN IV FLUSH 12/29/16 13:00 (NS Flush) 2 ml BID IV FLUSH 12/29/16 21:00 12/30/16 22:25 (Tylenol) 650 mg Q4H PRN PO 12/29/16 13:00 (Tylenol) 650 mg Q6H PRN PO 12/29/16 13:00 (Roxicodone) 10 mg Q4H PRN PO 12/29/16 13:00 (Morphine Inj) 4 mg Q3H PRN IV 12/29/16 13:00 (Roxicodone) 5 mg Q4H PRN PO 12/29/16 13:00 (Narcan Inj) 0.4 mg UNSCH PRN IV 12/29/16 13:00 (Ashia-Colace) 1 tab BID PO 12/29/16 21:00 A/P Assessment and Plan Acute colitis/ C diff Ongoing for two weeks. Completed a course of antibiotics as an outpt. He has leukocytosis. CT scan showed: Colonic wall thickening and surrounding inflammatory change most characteristic of colitis. C. difficile PCR was positive. - continue IV Flagyl. DC Levaquin. Improving. - IVFs. Encourage PO water intake upon discharge. - pain control and antiemetics as needed. - follow up with GI as an outpt. Complete a course of PO Flagyl. Acute on chronic renal failure Baseline creatinine around 1.3. Likely s/t dehydration from diarrhea. Improved with fluids. - Continue IVFs. Encourage PO fluids. - avoid nephrotoxic agents. - treat colitis as above. - hold naproxen. Resume lisinopril. Hyponatremia Likely hypovolemic from diarrhea. - IVFs. - treatment as above. Resolved. DM2 On glipizide as an outpt. - resume glipizide upon discharge. - insulin sliding scale. PPx: SCDs Discharge Planning D/c home Kie Schumacher DO Dec 31, 2016 11:38
[2016-12-31 12:00] VITALS: BP 124/59; PULSE 93; RESP 19; TEMP 96.9; O2SAT 99
[2016-12-31] MEDS ORDERED: LEVOFLOXACIN 750 MG PREMIX INJ 150 ML IV SCH (12:00)
== END 2016-12-31 13:01 | disposition home or self-care (01) | DRG 372 ==
LOC: NEPD 09:28 → NEDA 12:54 → N07A 14:41
PROVIDERS: ADMIT Hospitalist; ATTEND Hospitalist
DX: A04.7 Enterocolitis due to Clostridium difficile (principal); N17.9 Acute kidney failure, unspecified; E11.22 Type 2 diabetes mellitus with diabetic chronic kidney disease; E87.1 Hypo-osmolality and hyponatremia; I12.9 Hypertensive chronic kidney disease with stage 1 through stage 4 chronic kidney disease, or unspecified chronic kidney disease; N18.9 Chronic kidney disease, unspecified; E86.0 Dehydration; Z79.84 Long term (current) use of oral hypoglycemic drugs
CPT/HCPCS: 74000; 74176; 80048; 80053; 81001; 82948; 83735; 85025; 85027; 87040; 87493; 87506; 96361; 96365; 96368; 96372; J0500; J1815; J1956; J7030